=== PATIENT | male | born 1965 | race Caucasian/White ===

== ENCOUNTER 2017-02-21 11:36 | Inpatient (IN) | payer OTHER ==
[~2017-02-21] VITALS: Ht 167.6 cm; Wt 94.0 kg
[2017-02-21] MEDS ORDERED: ASPIRIN 325 MG TAB PO STA (12:05)
[2017-02-21] MEDS ORDERED: NITROGLYCERIN 2% 1 GM OINT PKT TD STA (12:05)
--- NOTE | 2017-02-21 12:30 | ERA ---
ER Documentation Chief Complaint Date/Time DATE: 02/21/17 TIME: 12:28 Chief Complaint chest painradiaets to the left arm; sob HPI 51-year-old male history of hypertension and strong family history of early cardiac disease who presents the emergency room with chest pain radiating to the left arm. He states that he has had these symptoms on and off for greater than 1 year but occasionally and more recently they have been more frequent. Patient states today he started to have chest pain several hours prior to arrival that was pressure-like with numbness and tingling to the left arm. He denied any back pain, no pleuritic pain, no significant shortness of breath. He denies any recent travel, leg pain, immobilization or surgery. No fevers or chills. He denies exertional symptoms or postprandial symptoms. ROS All systems reviewed and are negative except as per history of present illness. Medications Home Meds Reported Medications Levetiracetam* (Keppra*) 500 Mg Tablet, 500 MG PO BID, TAB 02/21/17 Famotidine* (Famotidine*) 40 Mg Tablet, 40 MG PO BID, #60 TAB 02/21/17 Carvedilol* (Coreg*) 12.5 Mg Tablet, 12.5 MG PO BID, #60 TAB 02/21/17 FmHx Family History: coronary disease, No diabetes Physical Exam Vitals Vital Signs Date Time Temp Pulse Resp B/P Pulse Ox O2 Delivery O2 Flow Rate FiO2 02/21/17 12:28 Nasal Cannula 2 02/21/17 11:38 98.3 87 18 113/81 95 Physical Exam General: Well developed, well nourished, no acute distress Head: Normocephalic, atraumatic. Eyes: Pupils equally reactive, EOM intact ENT: Moist mucous membranes Neck: Supple, no lymphadenopathy Respiratory: Lungs clear bilaterally, no distress Cardiovascular: RRR, no murmurs, rubs, or gallops Abdominal: Soft, non-tender, non-distended, no peritoneal signs : Deferred MSK: No edema, no unilateral swelling, 5/5 strength, no pulse deficits Neurologic: Alert and oriented, moving all extremities, normal speech, no focal weakness, no cerebellar signs Skin: No rash Psych: Normal mood Result Diagram: 02/21/17 1210 02/21/17 1210 Results 24 hrs Laboratory Tests Test 02/21/17 12:10 White Blood Count 6.710^3/ul Red Blood Count 5.1610^6/ul Hemoglobin 15.3g/dl Hematocrit 47.2% Mean Corpuscular Volume 91.5fl Mean Corpuscular Hemoglobin 29.7pg Mean Corpuscular Hemoglobin Concent 32.4g/dl Red Cell Distribution Width 13.3% Platelet Count 00539^3/UL Mean Platelet Volume 10.0fl Neutrophils % 63.8% Lymphocytes % 24.4% Monocytes % 9.3% Eosinophils % 1.6% Basophils % 0.6% Nucleated Red Blood Cells % 0.0/100WBC Neutrophils # 4.310^3/ul Lymphocytes # 1.610^3/ul Monocytes # 0.610^3/ul Eosinophils # 0.110^3/ul Basophils # 0.010^3/ul Nucleated Red Blood Cells # 0.010^3/ul Prothrombin Time 13.5Sec Prothrombin Time Ratio 1.1 INR International Normalized Ratio 1.03 Activated Partial Thromboplast Time 37.0Sec Sodium Level 144mmol/L Potassium Level 3.8mmol/L Chloride Level 105mmol/L Carbon Dioxide Level 25mmol/L Anion Gap 18 Blood Urea Nitrogen 17mg/dl Creatinine 0.79mg/dl Glucose Level 102mg/dl Calcium Level 8.6mg/dl Troponin I < 0.012ng/ml Current Medications Medications (Trade) Dose Ordered Sig/Safia Route PRN Reason Start Time Stop Time Status Last Admin Dose Admin Aspirin (Aspirin) 325 mg ONCE STAT PO 02/21/17 12:05 02/21/17 12:06 DC 02/21/17 12:21 Nitroglycerin (Nitroglycerin 2% Oint) 1 inch ONCE STAT TD 02/21/17 12:05 02/21/17 12:06 DC 02/21/17 12:21 Ondansetron HCl (Zofran Inj) 4 mg ER BRIDGE PRN IV NAUSEA AND/OR VOMITING 02/21/17 13:30 02/22/17 13:29 Acetaminophen (Tylenol Tab) 650 mg ER BRIDGE PRN PO MILD PAIN/FEVER 02/21/17 13:30 02/22/17 13:29 Procedures/MDM EKG, MONITORS, & DIAGNOSTIC IMAGING: EKG: I reviewed and interpreted a 12-lead EKG. Rhythm: Normal sinus rhythm Ectopy: None Intervals: No abnormalities ST segments: No elevations or depressions T waves: No contiguous inversions Repeat EKG: EKG: I reviewed and interpreted a 12-lead EKG. Rhythm: Normal sinus rhythm Ectopy: None Intervals: No abnormalities ST segments: No elevations or depressions T waves: No contiguous inversions Chest x-ray: I reviewed and interpreted a 1 view of the chest Mediastinum: No enlargement Cardiac silhouette: No cardiomegaly Airspace: Clear lung mccullough bilaterally without evidence of pneumothorax Bones: No evidence of fracture LAB INTERPRETATION: Negative troponin MEDICAL DECISION MAKING: The patient's history, physical exam and clinical presentation is concerning for possible cardiogenic etiology and acute coronary syndrome. The patient does report increasing social stressors though anxiety may be playing a role the patient does have strong family history and a concerning story. Based on the patient's clinical exam and history and risk factors, I have a much lower clinical concern for pulmonary embolism, acute aortic dissection, pneumothorax, pneumonia, cardiac tamponade HEART Score: 3-4 MACE Rate: Anywhere from 1.7-16.6% Shared Decision Making: We had a conversation regarding risk stratification, MACE rate, and the risks, benefits, alternatives of disposition planning options. Disposition planning: Given the patient's strong family history, the fact that he has not had stress testing in the past and the fact that he is describing classic anginal equivalent I strongly recommend hospitalization. The patient is agreeable. ER COURSE: The patient was given aspirin and nitroglycerin. Serial EKGs were negative. Troponin negative. Pain improving. I kept the patient and/or family informed of laboratory and diagnostic imaging results throughout the emergency room course. DISPOSITION PLAN: Telemetry admission for risk stratification, rule out of ACS and consideration for provocative testing. CONSULTATION: Accepting care team and consultations: I discussed the current laboratory data, diagnostic imaging and emergency care provided. Admitting team: Dr. Hall Admitting team indication: Insurance directed Departure Diagnosis: Primary Impression: Chest pain Qualified Code: R07.9 - Chest pain, unspecified type Condition: MARLEN Johnson MD February 21, 2017 12:30
[2017-02-21 12:32] LABS: ADD SCAN DIFF NO
[2017-02-21 12:35] LABS: BASOPHILS % 0.6 % (0.0-2.0); EOSINOPHILS # 0.1 10^3/ul (0.0-0.5); EOSINOPHILS % 1.6 % (0.0-7.0); HEMATOCRIT 47.2 % (42.0-52.0); HEMOGLOBIN 15.3 g/dl (14.0-18.0); LYMPHOCYTES # 1.6 10^3/ul (0.8-2.9); LYMPHOCYTES % 24.4 % (15.0-51.0); MEAN CORPUSCULAR HEMOGLOBIN 29.7 pg (29.0-33.0); MEAN CORPUSCULAR HGB CONC 32.4 g/dl (32.0-37.0); MEAN CORPUSCULAR VOLUME 91.5 fl (82.0-101.0); MONOCYTE # 0.6 10^3/ul (0.3-0.9); MONOCYTES % 9.3 % (0.0-11.0); NEUTROPHIL # 4.3 10^3/ul (1.6-7.5); NEUTROPHILS % 63.8 % (39.0-77.0); PLATELET COUNT 206 10^3/UL (140-415); RED BLOOD COUNT 5.16 10^6/ul (4.70-6.10); RED CELL DISTRIBUTION WIDTH 13.3 % (11.5-14.5); WHITE BLOOD COUNT 6.7 10^3/ul (4.8-10.8)
[2017-02-21] MEDS ORDERED: CARV12.598 PO (12:41)
[2017-02-21] MEDS ORDERED: LEVE-5 PO (12:41)
[2017-02-21] MEDS ORDERED: FAMO40TA52 PO (12:41)
--- NOTE | 2017-02-21 12:46 | RADRPT ---
PROCEDURE: XR Chest. CLINICAL INDICATION: Chest Pain. TECHNIQUE: Single frontal chest x-ray. COMPARISON: None. FINDINGS: The lungs are clear of acute infiltrates, edema, effusions, or masses.. The cardiomediastinal silho uette is unremarkable. The osseous structures are intact. IMPRESSION: No acute cardiopulmonary disease. RPTAT: EE .Morales Rivas MD, MD Date Time Electronically viewed and signed by .Morales Rivas MD, MD on 02/21/2017 12:46 .L/
[2017-02-21 12:49] LABS: CHLORIDE 105 mmol/L (97-110); POTASSIUM 3.8 mmol/L (3.5-5.1); SODIUM 144 mmol/L (135-144)
[2017-02-21 12:50] LABS: INR 1.03; PROTIME 13.5 Sec (12.2-14.2); PT RATIO 1.1
[2017-02-21 12:52] LABS: ANION GAP 18 (8-16); BLOOD UREA NITROGEN 17 mg/dl (7-20); CARBON DIOXIDE 25 mmol/L (21-31); CREATININE 0.79 mg/dl (0.61-1.24)
[2017-02-21 12:53] LABS: CALCIUM 8.6 mg/dl (8.4-10.2); GLUCOSE 102 mg/dl (70-220)
[2017-02-21 13:07] LABS: TROPONIN-I < 0.012 ng/ml (0.00-0.12)
[2017-02-21] MEDS ORDERED: ACETAMINOPHEN 325 MG TAB PO PRN (13:30)
[2017-02-21] MEDS ORDERED: ONDANSETRON 4 MG INJ IV PRN ×2 (13:30→18:00)
--- NOTE | 2017-02-21 15:39 | CONS ---
DATE OF ADMISSION: 02/21/2017 DATE OF CONSULTATION: 02/21/2017 REASON FOR CONSULTATION: Chest pain. HISTORY OF PRESENT ILLNESS: The patient is a 51-year-old male who comes in with substernal chest pa in with pain radiating to the left upper extremity associated with shortness of breath, dizziness an d palpitations. Denies syncope. Denies orthopnea or PND. Denies nausea, vomiting. Denies fever, chills, or rigors. PAST MEDICAL HISTORY: 1. Hypertension. 2. Seizures. ALLERGIES: NONE. CURRENT MEDICATIONS: Include aspirin. SOCIAL HISTORY: Denies smoking or recreational drugs. Drinks alcohol socially. REVIEW OF SYSTEMS: Unremarkable except that mentioned in the HPI. PHYSICAL EXAMINATION: VITAL SIGNS: Temperature is 98.3, heart rate of 79, blood pressure 113/60 mmHg, breathing at 16, an d saturating 98% on room air. GENERAL: The patient awake, alert, oriented, in no apparent distress. NECK: No JVD or carotid bruit. CARDIOVASCULAR: Regular rate and rhythm. No murmur, rub or gallop. LUNGS: Clear to auscultation. ABDOMEN: Soft. Bowel sounds are present. There is no organomegaly. EXTREMITIES: No pedal edema. Pedal pulses felt bilaterally. DIAGNOSTIC DATA: A 12-lead EKG shows normal sinus rhythm with a ventricular rate of 78 beats per mi nute with normal AK, normal QRS and prolonged QT intervals. Chest x-ray shows no congestion or infi ltrates. LABORATORY DATA: WBC 6.7, hemoglobin 15.3, hematocrit 47.2, with platelets 206. Sodium 144, potass ium 3.8, chloride 105, CO2 of 25, BUN 17, creatinine is 0.79. ASSESSMENT: A 51-year-old gentleman with: 1. Atypical chest pain. 2. Hypertension. Review of 12-lead EKG shows normal sinus rhythm with prolonged QT intervals with no acute ST-T wave changes. RECOMMENDATIONS: 1. Trend troponin, BNP. 2. Echocardiogram to assess for systolic function. 3. Started on metoprolol 4. Labs: Lipid panel, HbA1c. Dictated By: JAIRO BUSH MD SR/NTS Conf#: [id number] DID#: [id number]
[2017-02-21 15:52] LABS: CHOL/HDL RATIO 2.4 RATIO
--- NOTE | 2017-02-21 16:20 | HP ---
Date/Time of Note Date/Time of Note DATE: 02/21/17 TIME: 16:20 Assessment/Plan Lines/Catheters IV Catheter Type (from Nrs): Saline Lock HPI/ROS Admit Date/Time Admit Date/Time PMH/Family/Social Social History Smoking Status: Former smoker Exam/Review of Systems Vital Signs Vitals Vital Signs Date Time Temp Pulse Resp B/P Pulse Ox O2 Delivery O2 Flow Rate FiO2 02/21/17 14:22 79 16 113/60 98 Room Air 02/21/17 12:28 2 02/21/17 11:38 98.3 Labs Result Diagram: 02/21/17 1210 02/21/17 1210 Medications Medications Current Medications Metoprolol Succinate (Toprol Xl) 50 mg BID PO ; Start 02/21/17 at 21:00 MARY ALVAREZ February 21, 2017 16:20
--- NOTE | 2017-02-21 17:54 | HP ---
Date/Time of Note Date/Time of Note DATE: 02/21/17 TIME: 17:50 Assessment/Plan VTE Prophylaxis VTE Prophylaxis Intervention: SCD's Lines/Catheters IV Catheter Type (from Nrs): Saline Lock Assessment/Plan Assessment/Plan 1. Chest pain rule out acute coronary syndrome 2. Chronic seizure disorder stable on Keppra Plan: Telemetry admission, trend cardiac enzymes, 2d echo if none recently and possible cardiology consult for stress test. oxygen and nitroglycerin therapy as needed. Daily aspirin if no allergy or bleeding risk. Get lipid profile, magnesium and TSH levels in am. HPI/ROS Admit Date/Time Admit Date/Time February 21, 2017 Hx of Present Illness PRESENTING COMPLAINT: chest pain HISTORY OF PRESENTING COMPLAINT:: Mr. Tovar is a 51-year-old male with a history of high blood pressure and seizure disorder only who came into the ER today because of worsening and more frequent chest pain for the last couple of weeks. Pain is said to be substernal, radiating to the left upper extremity with associated numbness. He also gets very short of breath and dizzy and started to have palpitations. He does not notice diaphoresis. He denies shortness of breath on exertion, denies orthopnea. Denies fever or cough. Denies abdominal pain. Pain is different from his usual reflux pain. He has no personal history of heart attacks or strokes. He quit smoking a few years ago. ROS ROS: CONSTITUTIONAL: denies fever, chills, weight loss, weight gain HEENT: denies headaches, any vertigo, any sore throat or rhinorrhea. Eyes: No double or blurred vision or eye pain. GASTROINTESTINAL: The patient denies any nausea, vomiting, diarrhea or abdominal pain. GENITOURINARY: denies dysuria, frequency, urgency or hematuria. MUSCULOSKELETAL: also denies myalgias, arthralgias or edema. SKIN: denies rash or jaundice NEUROLOGIC: denies weakness, dizziness, focal neurological change or headache. PSYCHIATRIC: denies history of depression in the past, any suicidal ideation. substance abuse. ENDOCRINE: denies polyuria, polydipsia or hot or cold intolerance. HEMATOLOGIC: denies history of easy bruising, anemia or eczema. PMH/Family/Social Social History Alcohol Use: occasionally Smoking Status: Former smoker Drug Use: none Exam/Review of Systems Vital Signs Vitals Vital Signs Date Time Temp Pulse Resp B/P Pulse Ox O2 Delivery O2 Flow Rate FiO2 02/21/17 14:22 79 16 113/60 98 Room Air 02/21/17 12:28 2 02/21/17 11:38 98.3 Exam Exam GENERAL: Patient is alert, oriented x 3, in no apparent distress; does not appear acutely or chronically ill. Patient is able to sit up unassisted.Patient makes good eye contact, is conversant, interactive, coherent. Patient appears calm and comfortable and is able to follow commands. HEENT: Oropharynx is clear. There is no carotid bruit, no masses. Patient's pupils are equal, round and reactive to light bilaterally. Extraocular motions are intact. There is no scleral icterus. There is no facial asymmetry. NECK: Supple. LUNGS: Clear to auscultation bilaterally with good air entry. No Wheezes or crackles. HEART: S1, S2. No murmur, gallops or rubs. Regular rate and rhythm. ABDOMEN: Soft, nontender. Normoactive bowel sounds. There are no stigmata of chronic liver disease. BACK: no costovertebral angle tenderness. GENITOURINARY: Deferred. EXTREMITIES: No edema. There is no cyanosis, clubbing. There are 2+ pulses bilaterally distally. NEUROLOGIC: The patient has no lateralizing signs. Cranial nerves II-XII are intact. SKIN: Otherwise, unremarkable. Labs Result Diagram: 02/21/17 1210 02/21/17 1210 Medications Medications Current Medications Metoprolol Succinate (Toprol Xl) 50 mg BID PO ; Start 02/21/17 at 21:00 Procedures Procedures Laboratory Tests Test 02/21/17 12:10 White Blood Count 6.710^3/ul Red Blood Count 5.1610^6/ul Hemoglobin 15.3g/dl Hematocrit 47.2% Mean Corpuscular Volume 91.5fl Mean Corpuscular Hemoglobin 29.7pg Mean Corpuscular Hemoglobin Concent 32.4g/dl Red Cell Distribution Width 13.3% Platelet Count 63651^3/UL Mean Platelet Volume 10.0fl Neutrophils % 63.8% Lymphocytes % 24.4% Monocytes % 9.3% Eosinophils % 1.6% Basophils % 0.6% Nucleated Red Blood Cells % 0.0/100WBC Neutrophils # 4.310^3/ul Lymphocytes # 1.610^3/ul Monocytes # 0.610^3/ul Eosinophils # 0.110^3/ul Basophils # 0.010^3/ul Nucleated Red Blood Cells # 0.010^3/ul Prothrombin Time 13.5Sec Prothrombin Time Ratio 1.1 INR International Normalized Ratio 1.03 Activated Partial Thromboplast Time 37.0Sec Sodium Level 144mmol/L Potassium Level 3.8mmol/L Chloride Level 105mmol/L Carbon Dioxide Level 25mmol/L Anion Gap 18 Blood Urea Nitrogen 17mg/dl Creatinine 0.79mg/dl Glucose Level 102mg/dl Calcium Level 8.6mg/dl Troponin I < 0.012ng/ml B-Type Natriuretic Peptide 67PG/ML Triglycerides Level 121mg/dl Cholesterol Level 197mg/dl LDL Cholesterol, Calculated 93mg/dl HDL Cholesterol 80mg/dl Cholesterol/HDL Ratio 2.4RATIO Current Medications Medications (Trade) Dose Ordered Sig/Safia Route PRN Reason Start Time Stop Time Status Last Admin Dose Admin Aspirin (Aspirin) 325 mg ONCE STAT PO 02/21/17 12:05 02/21/17 12:06 DC 02/21/17 12:21 325 MG Nitroglycerin (Nitroglycerin 2% Oint) 1 inch ONCE STAT TD 02/21/17 12:05 02/21/17 12:06 DC 02/21/17 12:21 1 INCH Ondansetron HCl (Zofran Inj) 4 mg ER BRIDGE PRN IV NAUSEA AND/OR VOMITING 02/21/17 13:30 02/22/17 13:29 Acetaminophen (Tylenol Tab) 650 mg ER BRIDGE PRN PO MILD PAIN/FEVER 02/21/17 13:30 02/22/17 13:29 Metoprolol Succinate (Toprol Xl) 50 mg BID PO 02/21/17 21:00 I reviewed EKG Rate: Within normal limits Rhythm: sinus Note: No ST elevation or depressions noted concerning for acute ischemic event. PROCEDURE: XR Chest. CLINICAL INDICATION: Chest Pain. TECHNIQUE: Single frontal chest x-ray. COMPARISON: None. FINDINGS: The lungs are clear of acute infiltrates, edema, effusions, or masses.. The cardiomediastinal silhouette is unremarkable. The osseous structures are intact. IMPRESSION: No acute cardiopulmonary disease. RPTAT: EE .Morales Rivas MD, MD Date Time Electronically viewed and signed by .Morales Rivas MD, on 02/21/2017 12:46 .L/ CC: MARLEN JOSEPH MD ABE, BOLATITO M. February 21, 2017 17:54
[2017-02-21] MEDS ORDERED: morphine 2 MG INJ IV PRN (18:00)
[2017-02-21 18:41] LABS: CREATINE KINASE 109 IU/L (23-200)
[2017-02-21 18:50] LABS: CK-MB 0.76 ng/ml (0.0-2.4)
[2017-02-21 18:53] LABS: TROPONIN-I < 0.012 ng/ml (0.00-0.12)
[2017-02-21 19:49] VITALS: TEMP 98.9
[2017-02-21 19:50] VITALS: BP 166/97; PULSE 68; PULSE 75; RESP 20
[2017-02-21 20:10] VITALS: Ht 167.6 cm; Wt 94.0 kg
[2017-02-21 20:17] VITALS: PULSE 75
[2017-02-21] MEDS: DOCUSATE SODIUM 100 MG CAP PO SCH (21:00)
[2017-02-21] MEDS: LEVETIRACETAM 500 MG TAB PO SCH (21:42)
[2017-02-21] MEDS: METOPROLOL (XL) 50 MG TAB PO SCH (21:43)
[2017-02-21] MEDS: FAMOTIDINE 20 MG TAB PO SCH (21:47)
[2017-02-22] VITALS (14 sets, daily range): BP systolic 149–193; BP diastolic 97–128; PULSE 60–71; RESP 16–20
[2017-02-22 01:40] LABS: CREATINE KINASE 106 IU/L (23-200)
[2017-02-22 01:47] LABS: BARBITURATES NEGATIVE (NEGATIVE); BENZODIAZEPINES NEGATIVE (NEGATIVE); CANNABINOIDS NEGATIVE (NEGATIVE); COCAINE NEGATIVE (NEGATIVE); OPIATES NEGATIVE (NEGATIVE)
[2017-02-22 01:51] LABS: CK-MB 0.74 ng/ml (0.0-2.4)
[2017-02-22 01:58] LABS: TROPONIN-I < 0.012 ng/ml (0.00-0.12)
[2017-02-22] MEDS: ASPIRIN (EC) 81 MG TAB PO SCH (08:24)
[2017-02-22] MEDS: FAMOTIDINE 20 MG TAB PO SCH ×2 (08:24→20:17)
[2017-02-22] MEDS: LEVETIRACETAM 500 MG TAB PO SCH ×2 (08:24→20:17)
[2017-02-22] MEDS: METOPROLOL (XL) 50 MG TAB PO SCH ×2 (08:24→20:19)
[2017-02-22] MEDS: DOCUSATE SODIUM 100 MG CAP PO SCH ×2 (08:24→20:17)
[2017-02-22 09:22] LABS: ADD SCAN DIFF NO
[2017-02-22 09:26] LABS: BASOPHIL # 0.1 10^3/ul (0.0-0.1); BASOPHILS % 0.9 % (0.0-2.0); EOSINOPHILS # 0.1 10^3/ul (0.0-0.5); EOSINOPHILS % 2.1 % (0.0-7.0); HEMATOCRIT 46.6 % (42.0-52.0); HEMOGLOBIN 15.2 g/dl (14.0-18.0); LYMPHOCYTES # 1.4 10^3/ul (0.8-2.9); LYMPHOCYTES % 24.4 % (15.0-51.0); MEAN CORPUSCULAR HEMOGLOBIN 30.1 pg (29.0-33.0); MEAN CORPUSCULAR HGB CONC 32.6 g/dl (32.0-37.0); MEAN CORPUSCULAR VOLUME 92.3 fl (82.0-101.0); MEAN PLATELET VOLUME 10.4 fl (7.4-10.4); MONOCYTE # 0.7 10^3/ul (0.3-0.9); MONOCYTES % 11.6 % (0.0-11.0); NEUTROPHIL # 3.5 10^3/ul (1.6-7.5); NEUTROPHILS % 60.8 % (39.0-77.0); PLATELET COUNT 200 10^3/UL (140-415); RED BLOOD COUNT 5.05 10^6/ul (4.70-6.10); RED CELL DISTRIBUTION WIDTH 13.2 % (11.5-14.5); WHITE BLOOD COUNT 5.8 10^3/ul (4.8-10.8)
[2017-02-22 09:44] LABS: CHOL/HDL RATIO 3.2 RATIO; CREATININE 0.85 mg/dl (0.61-1.24); MAGNESIUM 2.1 mg/dl (1.7-2.5)
--- NOTE | 2017-02-22 11:04 | PN ---
Date/Time of Note Date/Time of Note DATE: 02/22/17 TIME: 11:04 Assessment/Plan VTE Prophylaxis VTE Prophylaxis Intervention: SCD's Lines/Catheters IV Catheter Type (from Nrsg): Saline Lock Assessment/Plan Assessment/Plan 1. Chest pain : Persistent 2. Chronic seizure disorder stable on Keppra * Follow-up TSH and echocardiogram /3 sets of cardiac enzymes negative /planned for stress test tomorrow by cardiology per patient * Continue supportive care. Subjective 24 Hr Interval Summary Free Text/Dictation * Patient continues to report chest pain. Was medicated with morphine a few hours ago. Exam/Review of Systems Vital Signs Vitals Vital Signs Date Time Temp Pulse Resp B/P Pulse Ox O2 Delivery O2 Flow Rate FiO2 02/22/17 08:15 62 02/22/17 07:59 98.1 18 153/97 97 02/21/17 19:50 Room Air 02/21/17 12:28 2 Intake and Output 02/21/17 02/21/17 02/22/17 14:59 22:59 06:59 Intake Total 240 ml Balance 240 ml Exam Constitutional: alert, oriented Head: atraumatic, normocephalic ENMT: mucosa pink and moist Neck: supple Respiratory: clear to auscultation Cardiovascular: regular rate and rhythm Gastrointestinal: bowel sounds, non-tender, soft Extremities: No edema Neurological: nl mental status Skin: No rash or lesions Results Result Diagram: 02/22/17 0850 02/22/17 0850 Results 24 hrs Laboratory Tests Test 02/21/17 12:10 02/21/17 18:04 02/21/17 21:50 02/22/17 00:59 White Blood Count 6.7 Red Blood Count 5.16 Hemoglobin 15.3 Hematocrit 47.2 Mean Corpuscular Volume 91.5 Mean Corpuscular Hemoglobin 29.7 Mean Corpuscular Hemoglobin Concent 32.4 Red Cell Distribution Width 13.3 Platelet Count 206 Mean Platelet Volume 10.0 Neutrophils % 63.8 Lymphocytes % 24.4 Monocytes % 9.3 Eosinophils % 1.6 Basophils % 0.6 Nucleated Red Blood Cells % 0.0 Neutrophils # 4.3 Lymphocytes # 1.6 Monocytes # 0.6 Eosinophils # 0.1 Basophils # 0.0 Nucleated Red Blood Cells # 0.0 Prothrombin Time 13.5 Prothrombin Time Ratio 1.1 INR International Normalized Ratio 1.03 Activated Partial Thromboplast Time 37.0 H Sodium Level 144 Potassium Level 3.8 Chloride Level 105 Carbon Dioxide Level 25 Anion Gap 18 H Blood Urea Nitrogen 17 Creatinine 0.79 Glucose Level 102 Calcium Level 8.6 Troponin I < 0.012 < 0.012 < 0.012 B-Type Natriuretic Peptide 67 Triglycerides Level 121 Cholesterol Level 197 LDL Cholesterol, Calculated 93 HDL Cholesterol 80 H Cholesterol/HDL Ratio 2.4 Creatine Kinase 109 106 Creatine Kinase Index 0.7 0.7 Creatinine Kinase MB (Mass) 0.76 0.74 Urine Opiates Screen NEGATIVE Urine Barbiturates NEGATIVE Urine Amphetamines Screen NEGATIVE Urine Benzodiazepines Screen NEGATIVE Urine Cocaine Screen NEGATIVE Urine Cannabinoids NEGATIVE Test 02/22/17 08:50 White Blood Count 5.8 Red Blood Count 5.05 Hemoglobin 15.2 Hematocrit 46.6 Mean Corpuscular Volume 92.3 Mean Corpuscular Hemoglobin 30.1 Mean Corpuscular Hemoglobin Concent 32.6 Red Cell Distribution Width 13.2 Platelet Count 200 Mean Platelet Volume 10.4 Neutrophils % 60.8 Lymphocytes % 24.4 Monocytes % 11.6 H Eosinophils % 2.1 Basophils % 0.9 Nucleated Red Blood Cells % 0.0 Neutrophils # 3.5 Lymphocytes # 1.4 Monocytes # 0.7 Eosinophils # 0.1 Basophils # 0.1 Nucleated Red Blood Cells # 0.0 Sodium Level 138 Potassium Level 4.0 Chloride Level 104 Carbon Dioxide Level 27 Anion Gap 11 # Blood Urea Nitrogen 21 H Creatinine 0.85 Glucose Level 144 # Hemoglobin A1c 5.5 Calcium Level 9.0 Magnesium Level 2.1 Triglycerides Level 97 Cholesterol Level 233 H LDL Cholesterol, Calculated 143 # HDL Cholesterol 71 Cholesterol/HDL Ratio 3.2 Thyroid Stimulating Hormone (TSH) Pending Medications Medications Current Medications Metoprolol Succinate (Toprol Xl) 50 mg BID PO Last administered on 02/22/17 08 :24; Admin Dose 50 MG; Start 02/21/17 at 21:00 Famotidine (Pepcid) 40 mg BID PO Last administered on 02/22/17 08:24; Admin Dose 40 MG; Start 02/21/17 at 21:00 Levetiracetam (Keppra) 500 mg BID PO Last administered on 02/22/17 08:24; Admin Dose 500 MG; Start 02/21/17 at 21:00 Aspirin (Halfprin) 81 mg DAILY PO Last administered on 02/22/17 08:24; Admin Dose 81 MG; Start 02/22/17 at 09:00 Ondansetron HCl (Zofran Inj) 4 mg Q6H PRN IV NAUSEA AND/OR VOMITING; Start at 18:00 Morphine Sulfate (morphine) 2 mg Q4H PRN IV pain; Start 02/21/17 at 18:00 Docusate Sodium (Colace) 100 mg BID PO Last administered on 02/22/17 08:24; Admin Dose 100 MG; Start 02/21/17 at 21:00 MARY ALVAREZ February 22, 2017 11:04
[2017-02-22 11:19] LABS: THYROID STIMULATING HORMONE 1.62 MIU/L (0.465-4.680)
--- NOTE | 2017-02-22 11:43 | CONS ---
Date/Time of Note Date/Time of Note DATE: 02/22/17 TIME: 11:40 Assessment/Plan Assessment/Plan Additional Assessment/Plan A 51-year-old gentleman with: Atypical chest pain. Hypertension. Review of 12-lead EKG shows normal sinus rhythm with prolonged QT intervals with no acute ST-T wave changes. Ruled out for ACS with serial negative troponin's Hypertensive Started on Losartan Continue metoprolol Continue Lipitor Awaiting echo results Consultation Date/Type/Reason Admit Date/Time February 21, 2017 at 13:29 Initial Consult Date Exam/Review of Systems Vital Signs Vitals Vital Signs Date Time Temp Pulse Resp B/P Pulse Ox O2 Delivery O2 Flow Rate FiO2 02/22/17 08:15 62 02/22/17 07:59 98.1 18 153/97 97 02/21/17 19:50 Room Air 02/21/17 12:28 2 Intake and Output 02/21/17 02/21/17 02/22/17 15:00 23:00 07:00 Intake Total 240 ml Balance 240 ml Exam Constitutional: alert, oriented, well developed Head: atraumatic, normocephalic Neck: non-tender, supple Respiratory: clear to auscultation Cardiovascular: regular rate and rhythm Gastrointestinal: nl liver, spleen, non-tender, soft Extremities: normal pulses Results Result Diagram: 02/22/17 0850 02/22/17 0850 Results 24 hrs Laboratory Tests Test 02/21/17 12:10 02/21/17 18:04 02/21/17 21:50 02/22/17 00:59 White Blood Count 6.7 Red Blood Count 5.16 Hemoglobin 15.3 Hematocrit 47.2 Mean Corpuscular Volume 91.5 Mean Corpuscular Hemoglobin 29.7 Mean Corpuscular Hemoglobin Concent 32.4 Red Cell Distribution Width 13.3 Platelet Count 206 Mean Platelet Volume 10.0 Neutrophils % 63.8 Lymphocytes % 24.4 Monocytes % 9.3 Eosinophils % 1.6 Basophils % 0.6 Nucleated Red Blood Cells % 0.0 Neutrophils # 4.3 Lymphocytes # 1.6 Monocytes # 0.6 Eosinophils # 0.1 Basophils # 0.0 Nucleated Red Blood Cells # 0.0 Prothrombin Time 13.5 Prothrombin Time Ratio 1.1 INR International Normalized Ratio 1.03 Activated Partial Thromboplast Time 37.0 H Sodium Level 144 Potassium Level 3.8 Chloride Level 105 Carbon Dioxide Level 25 Anion Gap 18 H Blood Urea Nitrogen 17 Creatinine 0.79 Glucose Level 102 Calcium Level 8.6 Troponin I < 0.012 < 0.012 < 0.012 B-Type Natriuretic Peptide 67 Triglycerides Level 121 Cholesterol Level 197 LDL Cholesterol, Calculated 93 HDL Cholesterol 80 H Cholesterol/HDL Ratio 2.4 Creatine Kinase 109 106 Creatine Kinase Index 0.7 0.7 Creatinine Kinase MB (Mass) 0.76 0.74 Urine Opiates Screen NEGATIVE Urine Barbiturates NEGATIVE Urine Amphetamines Screen NEGATIVE Urine Benzodiazepines Screen NEGATIVE Urine Cocaine Screen NEGATIVE Urine Cannabinoids NEGATIVE Test 02/22/17 08:50 White Blood Count 5.8 Red Blood Count 5.05 Hemoglobin 15.2 Hematocrit 46.6 Mean Corpuscular Volume 92.3 Mean Corpuscular Hemoglobin 30.1 Mean Corpuscular Hemoglobin Concent 32.6 Red Cell Distribution Width 13.2 Platelet Count 200 Mean Platelet Volume 10.4 Neutrophils % 60.8 Lymphocytes % 24.4 Monocytes % 11.6 H Eosinophils % 2.1 Basophils % 0.9 Nucleated Red Blood Cells % 0.0 Neutrophils # 3.5 Lymphocytes # 1.4 Monocytes # 0.7 Eosinophils # 0.1 Basophils # 0.1 Nucleated Red Blood Cells # 0.0 Sodium Level 138 Potassium Level 4.0 Chloride Level 104 Carbon Dioxide Level 27 Anion Gap 11 # Blood Urea Nitrogen 21 H Creatinine 0.85 Glucose Level 144 # Hemoglobin A1c 5.5 Calcium Level 9.0 Magnesium Level 2.1 Triglycerides Level 97 Cholesterol Level 233 H LDL Cholesterol, Calculated 143 # HDL Cholesterol 71 Cholesterol/HDL Ratio 3.2 Thyroid Stimulating Hormone (TSH) 1.620 Medications Medications Current Medications Metoprolol Succinate (Toprol Xl) 50 mg BID PO Last administered on 02/22/17 08 :24; Admin Dose 50 MG; Start 02/21/17 at 21:00 Famotidine (Pepcid) 40 mg BID PO Last administered on 02/22/17 08:24; Admin Dose 40 MG; Start 02/21/17 at 21:00 Levetiracetam (Keppra) 500 mg BID PO Last administered on 02/22/17 08:24; Admin Dose 500 MG; Start 02/21/17 at 21:00 Aspirin (Halfprin) 81 mg DAILY PO Last administered on 02/22/17 08:24; Admin Dose 81 MG; Start 02/22/17 at 09:00 Ondansetron HCl (Zofran Inj) 4 mg Q6H PRN IV NAUSEA AND/OR VOMITING; Start at 18:00 Morphine Sulfate (morphine) 2 mg Q4H PRN IV pain; Start 02/21/17 at 18:00 Docusate Sodium (Colace) 100 mg BID PO Last administered on 02/22/17t 08:24; Admin Dose 100 MG; Start 02/21/17 at 21:00 Atorvastatin Calcium (Lipitor) 40 mg HS PO ; Start 02/22/17 at 21:00 Losartan Potassium (Cozaar) 100 mg DAILY PO ; Start 02/22/17 at 11:30 JAIRO BUSH M.D. February 22, 2017 11:43
[2017-02-22] MEDS: LOSARTAN 50 MG TAB PO SCH (12:05)
[2017-02-22] MEDS ORDERED: ACETAMINOPHEN 325 MG TAB PO PRN (15:30)
[2017-02-22] MEDS: hydrALAzine 20 MG INJ IV PRN ×2 (15:34→21:37)
[2017-02-22] MEDS: ATORVASTATIN 40 MG TAB PO SCH (20:17)
[2017-02-23] VITALS (13 sets, daily range): BP systolic 133–198; BP diastolic 86–109; PULSE 65–85; RESP 18
[2017-02-23] MEDS ORDERED: hydrALAzine 20 MG INJ IV ONE (01:00)
[2017-02-23] MEDS: LEVETIRACETAM 500 MG TAB PO SCH ×2 (08:52→21:56)
[2017-02-23] MEDS: LOSARTAN 50 MG TAB PO SCH (08:53)
[2017-02-23] MEDS: ASPIRIN (EC) 81 MG TAB PO SCH (08:54)
[2017-02-23] MEDS: METOPROLOL (XL) 50 MG TAB PO SCH ×2 (08:54→21:55)
[2017-02-23] MEDS: FAMOTIDINE 20 MG TAB PO SCH ×2 (08:54→21:56)
[2017-02-23] MEDS: DOCUSATE SODIUM 100 MG CAP PO SCH ×2 (09:00→21:56)
[2017-02-23 09:38] LABS: ADD SCAN DIFF NO
[2017-02-23 09:40] LABS: BASOPHILS % 0.6 % (0.0-2.0); EOSINOPHILS # 0.1 10^3/ul (0.0-0.5); EOSINOPHILS % 1.6 % (0.0-7.0); HEMOGLOBIN 16.2 g/dl (14.0-18.0); LYMPHOCYTES # 1.3 10^3/ul (0.8-2.9); LYMPHOCYTES % 19.3 % (15.0-51.0); MEAN CORPUSCULAR HEMOGLOBIN 30.2 pg (29.0-33.0); MEAN CORPUSCULAR HGB CONC 33.1 g/dl (32.0-37.0); MEAN CORPUSCULAR VOLUME 91.2 fl (82.0-101.0); MEAN PLATELET VOLUME 10.3 fl (7.4-10.4); MONOCYTE # 0.7 10^3/ul (0.3-0.9); MONOCYTES % 10.9 % (0.0-11.0); NEUTROPHIL # 4.5 10^3/ul (1.6-7.5); NEUTROPHILS % 67.2 % (39.0-77.0); PLATELET COUNT 217 10^3/UL (140-415); RED BLOOD COUNT 5.37 10^6/ul (4.70-6.10); WHITE BLOOD COUNT 6.7 10^3/ul (4.8-10.8)
[2017-02-23 10:19] LABS: CALCIUM 9.4 mg/dl (8.4-10.2); CREATININE 0.93 mg/dl (0.61-1.24); POTASSIUM 4.2 mmol/L (3.5-5.1)
--- NOTE | 2017-02-23 14:37 | PN ---
Date/Time of Note Date/Time of Note DATE: 02/23/17 TIME: 14:34 Assessment/Plan VTE Prophylaxis VTE Prophylaxis Intervention: SCD's Lines/Catheters IV Catheter Type (from Nrs): Saline Lock Assessment/Plan Chief Complaint/Hosp Course Assessment/Plan 51 M with: 1. Chest pain : Persistent - has r/o'ed for ACS - continue current meds, will discuss with CV team about stress test. 2. Chronic seizure disorder stable on Keppra * Continue supportive care. 3. GI ppx- H2 radha Problems: Subjective 24 Hr Interval Summary Free Text/Dictation Pt with mild cp, no acute events overnight. Asking about CV stress test. Exam/Review of Systems Vital Signs Vitals Vital Signs Date Time Temp Pulse Resp B/P Pulse Ox O2 Delivery O2 Flow Rate FiO2 02/23/17 12:16 69 02/23/17 11:35 98.0 18 144/95 96 02/21/17 19:50 Room Air 02/21/17 12:28 2 Intake and Output 02/22/17 02/22/17 02/23/17 15:00 23:00 07:00 Intake Total 1160 ml Balance 1160 ml Exam Constitutional: alert, oriented Head: atraumatic, normocephalic ENMT: mucosa pink and moist Neck: supple Respiratory: clear to auscultation Cardiovascular: regular rate and rhythm Gastrointestinal: bowel sounds, non-tender, soft Extremities: No edema Neurological: nl mental status Skin: No rash or lesions Results Result Diagram: 02/23/17 0913 02/23/17 0913 Results 24 hrs Laboratory Tests Test 02/23/17 09:13 White Blood Count 6.7 Red Blood Count 5.37 Hemoglobin 16.2 Hematocrit 49.0 Mean Corpuscular Volume 91.2 Mean Corpuscular Hemoglobin 30.2 Mean Corpuscular Hemoglobin Concent 33.1 Red Cell Distribution Width 13.0 Platelet Count 217 Mean Platelet Volume 10.3 Neutrophils % 67.2 Lymphocytes % 19.3 Monocytes % 10.9 Eosinophils % 1.6 Basophils % 0.6 Nucleated Red Blood Cells % 0.0 Neutrophils # 4.5 Lymphocytes # 1.3 Monocytes # 0.7 Eosinophils # 0.1 Basophils # 0.0 Nucleated Red Blood Cells # 0.0 Sodium Level 135 Potassium Level 4.2 Chloride Level 101 Carbon Dioxide Level 27 Anion Gap 11 Blood Urea Nitrogen 17 Creatinine 0.93 Glucose Level 148 Calcium Level 9.4 Medications Medications Current Medications Metoprolol Succinate (Toprol Xl) 50 mg BID PO Last administered on 02/23/17 08 :54; Admin Dose 50 MG; Start 02/21/17 at 21:00 Famotidine (Pepcid) 40 mg BID PO Last administered on 02/23/17 08:54; Admin Dose 40 MG; Start 02/21/17 at 21:00 Levetiracetam (Keppra) 500 mg BID PO Last administered on 02/23/17 08:52; Admin Dose 500 MG; Start 02/21/17 at 21:00 Aspirin (Halfprin) 81 mg DAILY PO Last administered on 02/23/17 08:54; Admin Dose 81 MG; Start 02/22/17 at 09:00 Ondansetron HCl (Zofran Inj) 4 mg Q6H PRN IV NAUSEA AND/OR VOMITING; Start at 18:00 Morphine Sulfate (morphine) 2 mg Q4H PRN IV pain Last administered on 00:46; Admin Dose 2 MG; Start 02/21/17 at 18:00 Docusate Sodium (Colace) 100 mg BID PO Last administered on 02/22/17 20:17; Admin Dose 100 MG; Start 02/21/17 at 21:00 Atorvastatin Calcium (Lipitor) 40 mg HS PO Last administered on 02/22/17 20:17 ; Admin Dose 40 MG; Start 02/22/17 at 21:00 Losartan Potassium (Cozaar) 100 mg DAILY PO Last administered on 02/23/17 08: 53; Admin Dose 100 MG; Start 02/22/17 at 11:30 Acetaminophen (Tylenol Tab) 650 mg Q6H PRN PO PAIN AND OR ELEVATED TEMP Last administered on 02/22/17 15:34; Admin Dose 650 MG; Start 02/22/17 at 15:30 Hydralazine HCl (Apresoline) 10 mg Q4H PRN IV ELEVATED BLOOD PRESSURE Last administered on 02/22/17 21:37; Admin Dose 10 MG; Start 02/22/17 at 15:30 KRISTINE TRONCOSO February 23, 2017 14:36
--- NOTE | 2017-02-23 15:20 | RADRPT ---
Echocardiogram Report Patient Name: JONNY MCKINNON Gender: Male Date: 1965 Study Date: 23-Feb-2017 Lean Sensei: Hakan Arcos [facility] Location: [id number] Ref. Physician: BHARAT BUSH Quality: Good Procedures: Transthoracic echocardiogram with complete 2D, M-Mode, and doppler examination. Indications: Chest Pain. 2D/M Mode Doppler Measurement Value Normal Ranges Measurement Value Normal Ranges LVIDd 2D 4.2 3.5 - 5.6 cm AV Peak Abdullahi 1.1 m/sec LVIDs 2D 2.2 2.1 - 4.1 cm AV Peak PG 5.0 mmHg FS 2D 48.2 % AI Peak PG 45.0 mmHg LVPWd 2D 1.2 0.6 - 1.1 cm AI Peak Abdullahi 3.3 m/sec IVSd 2D 1.3 0.6 - 1.1 cm AI PHT 670.0 msec IVS/LVPW 2D 1.1 LVOT Peak Abdullahi 1.1 m/sec AoR Diam 2D 3.5 2.0 - 3.7 cm LVOT Peak PG 5.0 mmHg LA/Ao 2D 1 0 - 1 MV E Peak Abdullahi 0.4 m/sec EDV 2D 75.7 cm3 MV A Peak Abdullahi 0.7 m/sec ESV 2D 10.5 cm3 MV E/A 0.6 LA Dimen 2D 3.5 2.3 - 4.0 cm MV Decel Time 190 msec MV E/A 0.6 Findings Left Ventricle: Normal left ventricular systolic function. Normal left ventricular cavity size. Mild concentric left ventricular hypertrophy. Ejection fraction is visually estimated at 65 %. Tissue Doppler/Mitral Doppler indices are consistent with impaired relaxation (Stage I diastolic dysfunction). Right Ventricle: Normal right ventricular size. Normal right ventricular systolic function. Left Atrium: The left atrium is normal in size. Right Atrium: The right atrium is normal in size. Mitral Valve: Normal appearance and function of the mitral valve with trace physiologic regurgitation. Aortic Valve: No hemodynamically significant aortic stenosis by doppler. Aortic cusps appear mildly calcified. Tricuspid Valve: Normal appearance of the tricuspid valve. Unable to obtain RVSP due to minimal presence of tricuspid regurgitation. Pulmonic Valve: Normal pulmonic valve appearance. Pericardium: Normal pericardium with no significant pericardial effusion. Aorta: Normal aortic root. IVC: Normal size and normal respiratory collapse consistent with normal right atrial pressure. Conclusions Normal left ventricular systolic function. Normal left ventricular cavity size. Mild concentric left ventricular hypertrophy. Ejection fraction is visually estimated at 65 %. Tissue Doppler/Mitral Doppler indices are consistent with impaired relaxation (Stage I diastolic dysfunction). Normal right ventricular size. Normal right ventricular systolic function. Normal appearance and function of the mitral valve with trace physiologic regurgitation. No hemodynamically significant aortic stenosis by doppler. Aortic cusps appear mildly calcified. Normal appearance of the tricuspid valve. Unable to obtain RVSP due to minimal presence of tricuspid regurgitation. Normal pericardium with no significant pericardial effusion. Electronically Signed By: Bharat Bush 23-Feb-2017 15:19:37 -0700 Patient Name: JONNY MCKINNON Study Date: 23-Feb-2017 [id number]
--- NOTE | 2017-02-23 19:55 | CONS ---
Date/Time of Note Date/Time of Note DATE: 02/23/17 TIME: 19:51 Assessment/Plan Assessment/Plan Chief Complaint/Hosp Course Imp: 1.Chest pain-negative trop x 3 2.HTN 3.HL 4.abnl ecg Recc: -Tele -serial ecg's -Continue current BB/ARB -Continue asa -start low dose oral nitrates given ongoing chest pain -will f/u echo -am lexiscan Problems: Consultation Date/Type/Reason Admit Date/Time February 21, 2017 at 13:29 Initial Consult Date 02/21/2017 Type of Consultation: Cardiology Reason for Consultation Chest pain Referring Provider: MARY ALVAERZ Exam/Review of Systems Vital Signs Vitals Vital Signs Date Time Temp Pulse Resp B/P Pulse Ox O2 Delivery O2 Flow Rate FiO2 02/23/17 19:21 98.7 68 18 148/95 96 02/21/17 19:50 Room Air 02/21/17 12:28 2 Intake and Output 02/22/17 02/22/17 02/23/17 15:00 23:00 07:00 Intake Total 1160 ml Balance 1160 ml Exam Review of Systems: CONSTITUTIONAL: No fevers, chills. PULMONARY: No sob CARDIOVASCULAR: intermittent chest pain/palpitations GASTROINTESTINAL: No nausea/vomiting. GENITOURINARY: No hematuria/dysuria. MUSCULOSKELETAL: No myagias/arthalgias. PSYCHIATRIC: The patient denies depression. NEUROLOGIC: No weakness Constitutional: alert, oriented Psych: no complaints Head: normocephalic ENMT: mucosa pink and moist Neck: jvd (8 cm water), supple Respiratory: clear to auscultation Cardiovascular: regular rate and rhythm Gastrointestinal: non-tender, soft Musculoskeletal: muscle tone (normal) Extremities: edema (none) Neurological: other (No focal deficits) Results Result Diagram: 02/23/17 0913 02/23/17 0913 Results 24 hrs Laboratory Tests Test 02/23/17 09:13 White Blood Count 6.7 Red Blood Count 5.37 Hemoglobin 16.2 Hematocrit 49.0 Mean Corpuscular Volume 91.2 Mean Corpuscular Hemoglobin 30.2 Mean Corpuscular Hemoglobin Concent 33.1 Red Cell Distribution Width 13.0 Platelet Count 217 Mean Platelet Volume 10.3 Neutrophils % 67.2 Lymphocytes % 19.3 Monocytes % 10.9 Eosinophils % 1.6 Basophils % 0.6 Nucleated Red Blood Cells % 0.0 Neutrophils # 4.5 Lymphocytes # 1.3 Monocytes # 0.7 Eosinophils # 0.1 Basophils # 0.0 Nucleated Red Blood Cells # 0.0 Sodium Level 135 Potassium Level 4.2 Chloride Level 101 Carbon Dioxide Level 27 Anion Gap 11 Blood Urea Nitrogen 17 Creatinine 0.93 Glucose Level 148 Calcium Level 9.4 Medications Medications Current Medications Metoprolol Succinate (Toprol Xl) 50 mg BID PO Last administered on 02/23/17 08 :54; Admin Dose 50 MG; Start 02/21/17 at 21:00 Famotidine (Pepcid) 40 mg BID PO Last administered on 02/23/17 08:54; Admin Dose 40 MG; Start 02/21/17 at 21:00 Levetiracetam (Keppra) 500 mg BID PO Last administered on 02/23/17 08:52; Admin Dose 500 MG; Start 02/21/17 at 21:00 Aspirin (Halfprin) 81 mg DAILY PO Last administered on 02/23/17 08:54; Admin Dose 81 MG; Start 02/22/17 at 09:00 Ondansetron HCl (Zofran Inj) 4 mg Q6H PRN IV NAUSEA AND/OR VOMITING; Start at 18:00 Morphine Sulfate (morphine) 2 mg Q4H PRN IV pain Last administered on 00:46; Admin Dose 2 MG; Start 02/21/17 at 18:00 Docusate Sodium (Colace) 100 mg BID PO Last administered on 02/22/17 20:17; Admin Dose 100 MG; Start 02/21/17 at 21:00 Atorvastatin Calcium (Lipitor) 40 mg HS PO Last administered on 02/22/17 20:17 ; Admin Dose 40 MG; Start 02/22/17 at 21:00 Losartan Potassium (Cozaar) 100 mg DAILY PO Last administered on 02/23/17 08: 53; Admin Dose 100 MG; Start 02/22/17 at 11:30 Acetaminophen (Tylenol Tab) 650 mg Q6H PRN PO PAIN AND OR ELEVATED TEMP Last administered on 02/22/17 15:34; Admin Dose 650 MG; Start 02/22/17 at 15:30 Hydralazine HCl (Apresoline) 10 mg Q4H PRN IV ELEVATED BLOOD PRESSURE Last administered on 02/22/17t 21:37; Admin Dose 10 MG; Start 02/22/17 at 15:30 JAJA MATSON February 23, 2017 19:55
[2017-02-23] MEDS: ATORVASTATIN 40 MG TAB PO SCH (21:55)
[2017-02-23] MEDS: ISOSORBIDE DINITRATE 10 MG TAB PO SCH (21:56)
[2017-02-24] VITALS (10 sets, daily range): BP systolic 115–164; BP diastolic 77–105; PULSE 58–77; RESP 15–18
[2017-02-24] MEDS: FAMOTIDINE 20 MG TAB PO SCH (08:39)
[2017-02-24] MEDS: LOSARTAN 50 MG TAB PO SCH (08:39)
[2017-02-24] MEDS: ASPIRIN (EC) 81 MG TAB PO SCH (08:39)
[2017-02-24] MEDS: LEVETIRACETAM 500 MG TAB PO SCH (08:39)
[2017-02-24] MEDS: ISOSORBIDE DINITRATE 10 MG TAB PO SCH ×2 (08:39→13:26)
[2017-02-24] MEDS: DOCUSATE SODIUM 100 MG CAP PO SCH (08:39)
[2017-02-24] MEDS: METOPROLOL (XL) 50 MG TAB PO SCH (08:40)
[2017-02-24] MEDS: REGADENOSON 0.4 MG/5 ML SYG ONE ×2 (09:37→10:35)
--- NOTE | 2017-02-24 11:02 | ECORPT ---
DATE OF SERVICE: LEXISCAN CARDIOLITE STRESS TEST REASON FOR STRESS TEST: Chest pain. DESCRIPTION OF PROCEDURE: The patient had Lexiscan Cardiolite injection. He had some discomfort wi th injection, but no acute ST-T changes. The imaging portion of the report will be dictated elzbieta bashir. Dictated By: HEMALATHA PATEL MD ML/NTS Conf#: [id number] DID#: [id number]
--- NOTE | 2017-02-24 11:04 | CONS ---
Date/Time of Note Date/Time of Note DATE: 02/24/17 TIME: 11:02 Assessment/Plan Assessment/Plan Additional Assessment/Plan 1.Chest pain-negative trop x 3 - stress test today 2.HTN - well maintained. con't med rx 3.HL - weight loss/ diet 4.abnl ecg - no cp now, stress test to follow Consultation Date/Type/Reason Admit Date/Time February 21, 2017 at 13:29 Initial Consult Date Type of Consultation: Cardiology Referring Provider: MARY ALVAREZ 24 HR Interval Summary Free Text/Dictation stress test today - no ectopy on tele ROS: No fever, no chills, no nausea, no vomiting, no diarrhea/constipation No recent weight changes No chest pain, no PND, no orthopnea No dizziness, blurred vision No thirst, no heat or cold intolerance Exam/Review of Systems Vital Signs Vitals Vital Signs Date Time Temp Pulse Resp B/P Pulse Ox O2 Delivery O2 Flow Rate FiO2 02/24/17 08:35 58 02/24/17 07:07 97.8 18 120/78 98 02/21/17 19:50 Room Air 02/21/17 12:28 2 Intake and Output 02/23/17 02/23/17 02/24/17 15:00 23:00 07:00 Intake Total 700 ml Balance 700 ml Exam General: WN/WD/NAD, AOx 3 HEENT: Unicetric/atraumatic/EOMI (follow commands) NECK: JVD elevated, no thyromegaly Lymph: no lymphadenopathy HEART: regular with no S3, I/ systolic murmur at apex LUNGS: Coarse sounds ABD: soft, NT, ND, +BS : Intact Neuro: non focal SKIN: chronic changes EXT: trace edema Results Result Diagram: 02/23/1791202/23/17912 Medications Medications Current Medications Metoprolol Succinate (Toprol Xl) 50 mg BID PO Last administered on 02/24/17 08 :40; Admin Dose 50 MG; Start 02/21/17 at 21:00 Famotidine (Pepcid) 40 mg BID PO Last administered on 02/24/17 08:39; Admin Dose 40 MG; Start 02/21/17 at 21:00 Levetiracetam (Keppra) 500 mg BID PO Last administered on 02/24/17 08:39; Admin Dose 500 MG; Start 02/21/17 at 21:00 Aspirin (Halfprin) 81 mg DAILY PO Last administered on 02/24/17 08:39; Admin Dose 81 MG; Start 02/22/17 at 09:00 Ondansetron HCl (Zofran Inj) 4 mg Q6H PRN IV NAUSEA AND/OR VOMITING; Start at 18:00 Morphine Sulfate (morphine) 2 mg Q4H PRN IV pain Last administered on 00:46; Admin Dose 2 MG; Start 02/21/17 at 18:00 Docusate Sodium (Colace) 100 mg BID PO Last administered on 02/24/17 08:39; Admin Dose 100 MG; Start 02/21/17 at 21:00 Atorvastatin Calcium (Lipitor) 40 mg HS PO Last administered on 02/23/17 21:55 ; Admin Dose 40 MG; Start 02/22/17 at 21:00 Losartan Potassium (Cozaar) 100 mg DAILY PO Last administered on 02/24/17 08: 39; Admin Dose 100 MG; Start 02/22/17 at 11:30 Acetaminophen (Tylenol Tab) 650 mg Q6H PRN PO PAIN AND OR ELEVATED TEMP Last administered on 02/22/17 15:34; Admin Dose 650 MG; Start 02/22/17 at 15:30 Hydralazine HCl (Apresoline) 10 mg Q4H PRN IV ELEVATED BLOOD PRESSURE Last administered on 02/22/17 21:37; Admin Dose 10 MG; Start 02/22/17 at 15:30 Isosorbide Dinitrate (Isordil) 10 mg TID PO Last administered on 02/24/17 08: 39; Admin Dose 10 MG; Start 02/23/17 at 21:00 HEMALATHA PATEL MD February 24, 2017 11:04
[2017-02-24 12:10] LABS: ADD SCAN DIFF NO
[2017-02-24 12:17] LABS: BASOPHILS % 0.4 % (0.0-2.0); EOSINOPHILS # 0.1 10^3/ul (0.0-0.5); EOSINOPHILS % 1.6 % (0.0-7.0); HEMATOCRIT 48.8 % (42.0-52.0); HEMOGLOBIN 15.6 g/dl (14.0-18.0); LYMPHOCYTES # 1.5 10^3/ul (0.8-2.9); LYMPHOCYTES % 20.5 % (15.0-51.0); MEAN CORPUSCULAR HEMOGLOBIN 29.6 pg (29.0-33.0); MEAN CORPUSCULAR VOLUME 92.6 fl (82.0-101.0); MEAN PLATELET VOLUME 10.3 fl (7.4-10.4); MONOCYTE # 0.9 10^3/ul (0.3-0.9); MONOCYTES % 11.9 % (0.0-11.0); NEUTROPHIL # 4.9 10^3/ul (1.6-7.5); NEUTROPHILS % 65.2 % (39.0-77.0); PLATELET COUNT 198 10^3/UL (140-415); RED BLOOD COUNT 5.27 10^6/ul (4.70-6.10); RED CELL DISTRIBUTION WIDTH 13.2 % (11.5-14.5); WHITE BLOOD COUNT 7.5 10^3/ul (4.8-10.8)
--- NOTE | 2017-02-24 12:39 | PDOCDIS ---
Discharge Instructions CONDITION Patient Condition: Stable HOME CARE INSTRUCTIONS: Special Diet: Cardiac ACTIVITY: Activity Restrictions: Slowly Increase Activity FOLLOW UP/APPOINTMENTS Appointments Please see your doctor in the clinic in 1 week and take your medication as prescribed. KRISTINE TRONCOSO February 24, 2017 12:39
[2017-02-24] MEDS ORDERED: LOSA50TA2 PO (12:42)
[2017-02-24] MEDS ORDERED: METO50TA16 PO (12:42)
[2017-02-24] MEDS ORDERED: ISOS10TA2 PO (12:42)
[2017-02-24 12:48] LABS: CALCIUM 9.1 mg/dl (8.4-10.2); CREATININE 0.78 mg/dl (0.61-1.24); POTASSIUM 4.6 mmol/L (3.5-5.1)
--- NOTE | 2017-02-24 13:15 | RADRPT ---
PROCEDURE: Lexiscan myocardial perfusion study CLINICAL INDICATION: 51 -year-old patient complaining of chest pain. TECHNIQUE: Lexiscan 0.4 mg intravenously separate acquisition gated myocardial perfusion SPECT usi ng Tc 99m Myoview 31.7 mCi intravenously at stress and Tc-99m Myoview, 10.8 mCi intravenously at res t was performed using the rest/stress sequence. Poststress Myoview SPECT images were obtained in th e supine position. COMPARISON: No prior studies. FINDINGS: Perfusion images reveal no evidence of perfusion defects. Lexiscan post stress gated SPECT images demonstrate no wall motion abnormalities. IMPRESSION: 1. Normal study with no evidence of perfusion defects or wall motion abnormalities. 2. The left ventricle ejection fraction at stress is 59%. A call report was made to Dr. Winn at 01:13 p.m. on February 24, 2017. RPTAT: HH .Omaira Mckeon MD, Date Time Electronically viewed and signed by .Omaira Mckeon MD, MD on 02/24/2017 13:15 .L/
--- NOTE | 2017-02-24 18:59 | DS ---
DATE OF ADMISSION: 02/21/2017 DATE OF DISCHARGE: 02/24/2017 HOSPITAL COURSE: This is a 51-year-old male originally admitted on 02/21/2017 being discharged home pending final results of the cardiac stress test on 02/24/2017. The patient ____ with chest pain s ymptoms. He was admitted to telemetry floor, seen by cardiology team. He ruled out for acute coron charly syndrome. His A1c was found to be 5.5, it was good. He was seen by cardiology team, had some a djustments made to his cardiac medications specifically regarding his blood pressure medicines. The patient tolerated those well. He also underwent a nuclear cardiac stress test. The stress portion of the cardiac stress test came back negative. We are waiting for the nuclear portion. If that is negative today, he will be discharged home today in improved condition as long as he is not having any further symptoms. If he goes home today, he will be sent with the following medications: 1. Isordil 10 mg t.i.d. 2. Cozaar 100 mg daily. 3. Toprol-XL 50 mg b.i.d. 4. Famotidine 40 mg b.i.d. 5. Keppra 500 mg b.i.d. He will need to follow up with his primary care doctor, who is in [place], in the clinic in next 1 to 2 weeks. The patient was given strict return precautions in the event he develops any f urther chest pain or dizziness symptoms, although he is asymptomatic now. FINAL DIAGNOSES: 1. Chest pain, ruled out for acute coronary syndrome with final cardiac stress test results pending . Troponin is negative x3. Of note, his echocardiogram was performed and it showed ejection fracti on of 65%, normal left ventricular systolic function, normal left ventricular cavity size, mild conc entric left ventricular hypertrophy. There was some stage I diastolic dysfunction. 2. History of seizure disorder, on Keppra, chronic. Time spent discharging patient: 45 minutes. Dictated By: KRISTINE ALTAMIRANO Conf#: [id number] DID#: [id number]
== END 2017-02-24 17:55 | disposition home or self-care (01) | DRG 313 ==
LOC: E/R 11:36 → TEL 13:29
PROVIDERS: ADMIT Family Medicine; ATTEND Family Medicine
DX: R07.89 Other chest pain (principal); I10 Essential (primary) hypertension; G40.909 Epilepsy, unspecified, not intractable, without status epilepticus; E78.5 Hyperlipidemia, unspecified; R94.31 Abnormal electrocardiogram [ECG] [EKG]; Z79.899 Other long term (current) drug therapy
CPT/HCPCS: 36415; 71010; 78452; 80048; 80061; 80307; 82550; 82553; 83036; 83735; 83880; 84443; 84484; 85025; 85610; 85730; 93005; 93017; 93306; A9500; A9505; J0360; J2270; J2785